=== PATIENT | female | born 1995 | race African-American/Black ===

== ENCOUNTER → 2017-08-22 | Outpatient (CLI) | payer OTHER ==
[~2017-08-22] MED LIST: FERR325T18 PO; PRENTAB7 PO
== END ==
LOC: HPND 10:35
PROVIDERS: ATTEND Family Medicine
DX: O09.33 Supervision of pregnancy with insufficient antenatal care, third trimester (principal)
CPT/HCPCS: 76816

== ENCOUNTER → 2017-08-30 | Outpatient (CLI) | payer OTHER ==
[~2017-08-30] MED LIST changes: +IBUP-232 PO; +KETOROLAC TROMETHAMINE 60 MG/2 ML (IM) VIAL IM ONE; +OXYC1TAB63 PO; +OXYTOCIN 30 UNITS-500ML PREMIX 500 ML ONE; +PERI PO
== END ==
LOC: HOBG 15:29
PROVIDERS: ATTEND Obstetrics & Gynecology Maternal & Fetal Medicine
DX: O26.893 Other specified pregnancy related conditions, third trimester (principal); O32.1XX0 Maternal care for breech presentation, not applicable or unspecified; Z3A.39 39 weeks gestation of pregnancy
CPT/HCPCS: J1885; J2590

== ENCOUNTER 2017-08-31 05:04 | Inpatient (IN) | payer OTHER ==
[~2017-08-31] VITALS: Ht 177.8 cm; Wt 84.0 kg
[2017-08-31] VITALS (16 sets, daily range): BP systolic 111–137; BP diastolic 65–77; PULSE 60–86; RESP 12–20; TEMP 97.6–99.4; O2SAT 100
[~2017-08-31 05:04] MED LIST changes: -IBUP-232 PO; -KETOROLAC TROMETHAMINE 60 MG/2 ML (IM) VIAL IM ONE; -OXYC1TAB63 PO; -OXYTOCIN 30 UNITS-500ML PREMIX 500 ML ONE; -PERI PO
[2017-08-31] MEDS ORDERED: LACTATED RINGER'S 1000 ML INJ 1,000 ML IV ONE ×2 (06:30→12:00)
--- NOTE | 2017-08-31 06:30 | HHI.HP ---
HPI Chief Complaint SROM Date Seen: Aug 31, 2017 Time Seen: 06:15 Travel History International Travel<30 Days: No Contact w/Intl Traveler<30Days: No Known Affected Area: No History of Present Illness HPI 22-year-old G1 at 39 and 5 presenting to the ED for SROM. Patient was initially scheduled for a on 09/01 due to breech presentation. Patient states that at 0200 she awoke from sleep with vaginal trickling of fluid. This trickling persisted for several hours and prompted her to come to the ED. She states the fluid was clear. Denies contractions or vaginal bleeding. Continues to feel baby move appropriately. She denies fevers, chills, nausea vomiting, dysuria. Patient is GBS negative and had an uncomplicated to this point. History Past Medical History Medical History: Denies Significant Hx Obstetric History Obstetric History 39 weeks and 5 days Uncomplicated GBS negative Past Surgical History Surgical History: No Previous Surgery Family History Family History: Negative Social History Narrative Social History Lives alone, currently attending [facility] Denies tobacco or alcohol use Admits to smoking marijuana in the past but nothing during the Allergies-Medications (Allergen,Severity, Reaction): Coded Allergies: No Known Allergies (Unverified Adverse Reaction, Unknown, 08/31/17) Home Meds Active Scripts Ferrous Sulfate (Ferrous Sulfate) 325 Mg (65 Mg Iron) Tablet, 325 MG PO BIDPC for Nutritional Supplement, #90 TAB 3 Refills Prov:Vin Singh MD 08/18/17 Pnv No.95/Ferrous Fum/Folic AC ( Vitamins Tablet) 28 Mg Iron-800 Mcg Tablet, 1 TAB PO DAILY, #30 Prov:Vin Singh MD 06/24/17 Review of Systems Except as stated in HPI: all other systems reviewed are Neg Physical Exam Narrative GENERAL: Well-nourished, well-developed patient. SKIN: Warm and dry. HEAD: Normocephalic and atraumatic. EYES: No scleral icterus. No injection or drainage. ENT: No nasal drainage noted. Mucous membranes pink. Airway patent. NECK: Supple, trachea midline. No JVD. CARDIOVASCULAR: Regular rate and rhythm without murmurs, gallops, or rubs. RESPIRATORY: Breath sounds equal bilaterally. No accessory muscle use. ABDOMEN/GI: Abdomen soft, non-tender, bowel sounds present, no rebound, no guarding Gravid to 39 weeks size GENITOURINARY: External Genitalia: intact and normal in appearance Cervix: Posterior Dilatation: 1 centimeter Effacement: 50% Station: -3 Presentation: Breech Membranes: Ruptured Uterine Contractions: No contractions to this point on the monitor FHT's: Category: 1 Baseline: 145 Reactive: Yes Variability: Moderate Decels: No persistent decelerations EXTREMITIES: No cyanosis or edema. BACK: Nontender without obvious deformity. No CVA tenderness. NEUROLOGICAL: Awake and alert. Motor and sensory grossly within normal limits. Five out of 5 muscle strength in all muscle groups. Normal speech. Caprini VTE Risk Assessment Caprini VTE Risk Assessment: No/Low Risk (score <= 1) Data Data Orders Orders Ob (2e) Additional Admit Info (08/31/17 05:41) Assessment/Plan Assessment and Plan 22-year-old G1 at 39 weeks and 5 days presenting to the OB ED with SROM. Baby is in breech presentation and was initially planned for a on 09/01. Will proceed with this morning. -GBS negative -Bedside ultrasound showing baby in breech presentation -Planning for at 0730 -Continuous FHT until then -Category 1 tracing on admission -Routine preop orders Discussed with Dr. Art Loya,Bam Summers MD R1 Aug 31, 2017 06:30
--- NOTE | 2017-08-31 06:43 | PD ---
History of Present Illness History of Present Illness HPI HPI Chief Complaint SROM Date Seen: Aug 31, 2017 Time Seen: 06:15 Travel History International Travel<30 Days: No Contact w/Intl Traveler<30Days: No Known Affected Area: No History of Present Illness HPI 22-year-old G1 at 39 and 5 presenting to the ED for SROM. Patient was initially scheduled for a on 09/01 due to breech presentation. Patient states that at 0200 she awoke from sleep with vaginal trickling of fluid. This trickling persisted for several hours and prompted her to come to the ED. She states the fluid was clear. Denies contractions or vaginal bleeding. Continues to feel baby move appropriately. She denies fevers, chills, nausea vomiting, dysuria. Patient is GBS negative and had an uncomplicated to this point. History (Limited) History Past Medical History Medical History: Denies Significant Hx Obstetric History Obstetric History 39 weeks and 5 days Uncomplicated GBS negative Past Surgical History Surgical History: No Previous Surgery Family History Family History: Negative Social History Narrative Social History Lives alone, currently attending [facility] Denies tobacco or alcohol use Admits to smoking marijuana in the past but nothing during the Allergies-Medications Allergies-Medications (Allergen,Severity, Reaction): Coded Allergies: No Known Allergies (Unverified Adverse Reaction, Unknown, 08/31/17) Home Meds Active Scripts Ferrous Sulfate (Ferrous Sulfate) 325 Mg (65 Mg Iron) Tablet, 325 MG PO BIDPC for Nutritional Supplement, #90 TAB 3 Refills Prov:Vin Singh MD 08/18/17 Pnv No.95/Ferrous Fum/Folic AC ( Vitamins Tablet) 28 Mg Iron-800 Mcg Tablet, 1 TAB PO DAILY, #30 Prov:Vin Singh MD 06/24/17 ROS Review of Systems Except as stated in HPI: all other systems reviewed are Neg Physical Exam Physical Exam Narrative GENERAL: Well-nourished, well-developed patient. SKIN: Warm and dry. HEAD: Normocephalic and atraumatic. EYES: No scleral icterus. No injection or drainage. ENT: No nasal drainage noted. Mucous membranes pink. Airway patent. NECK: Supple, trachea midline. No JVD. CARDIOVASCULAR: Regular rate and rhythm without murmurs, gallops, or rubs. RESPIRATORY: Breath sounds equal bilaterally. No accessory muscle use. ABDOMEN/GI: Abdomen soft, non-tender, bowel sounds present, no rebound, no guarding Gravid to 39 weeks size GENITOURINARY: External Genitalia: intact and normal in appearance Cervix: Posterior Dilatation: 1 centimeter Effacement: 50% Station: -3 Presentation: Breech Membranes: Ruptured Uterine Contractions: No contractions to this point on the monitor FHT's: Category: 1 Baseline: 145 Reactive: Yes Variability: Moderate Decels: No persistent decelerations EXTREMITIES: No cyanosis or edema. BACK: Nontender without obvious deformity. No CVA tenderness. NEUROLOGICAL: Awake and alert. Motor and sensory grossly within normal limits. Five out of 5 muscle strength in all muscle groups. Normal speech. Caprini VTE Risk Assessment Caprini VTE Risk Assessment Caprini VTE Risk Assessment: No/Low Risk (score <= 1) Data Data Data Orders Orders Ob (2e) Additional Admit Info (08/31/17 05:41) OB Assessment/Plan Assessment/Plan Assessment and Plan 22-year-old G1 at 39 weeks and 5 days presenting to the OB ED with SROM. Baby is in breech presentation and was initially planned for a on 09/01. Will proceed with this morning. -GBS negative -Bedside ultrasound showing baby in breech presentation -Planning for at 0730 -Continuous FHT until then -Category 1 tracing on admission -Routine preop orders Discussed with Dr. Art Loya,Bam Summers MD R1 Aug 31, 2017 06:43
[2017-08-31] MEDS: LACTATED RINGER'S 1000 ML INJ 1,000 ML IV SCH (06:55)
[2017-08-31 06:57] LABS: BACTERIA, URINE OCC /hpf; BILIRUBIN, URINE NEG (NEG); BLOOD, URINE TRACE (NEG); GLUCOSE,URINE NEG (NEG); KETONE, URINE NEG (NEG); MUCUS URINE FEW /lpf (OCC); NITRITE,URINE NEG (NEG); PH, URINE 6.5 (5.0-8.5); SQUAMOUS EPITHELIAL CELL URINE 2 /hpf (0-5); URINE COLOR YELLOW (YELLW/STRAW); URINE LEUKOCYTE ESTERASE LARGE (NEG)
[2017-08-31 06:58] LABS: AUTOMATED NEUTROPHIL # 4.5 TH/MM3 (1.8-7.7); BASOPHIL % 0.6 % (0.0-2.0); EOSINOPHIL # 0.1 TH/MM3 (0-0.4); EOSINOPHIL % 1.2 % (0.0-4.0); HEMATOCRIT 28.8 % (35.0-46.0); HEMOGLOBIN 10.2 GM/DL (11.6-15.3); LYMPH % 21.4 % (9.0-44.0); LYMPHOCYTE # 1.4 TH/MM3 (1.0-4.8); MEAN CELL VOLUME 81.7 FL (80.0-100.0); MEAN CORPUSCULAR HGB CONC 35.5 % (32.0-36.0); MEAN PLATELET VOLUME 8.6 FL (7.0-11.0); MONO % 9.7 % (0.0-8.0); MONOCYTE # 0.7 TH/MM3 (0-0.9); NEUT % 67.1 % (16.0-70.0); PLATELET COUNT 244 TH/MM3 (150-450); RED BLOOD COUNT 3.53 MIL/MM3 (4.00-5.30); RED CELL DISTRIBUTION WIDTH 14.8 % (11.6-17.2); WHITE BLOOD COUNT 6.8 TH/MM3 (4.0-11.0)
[2017-08-31] MEDS ORDERED: MORPHINE SULFATE PF 5 MG/10 ML VIAL ONE (07:18)
[2017-08-31] MEDS ORDERED: ACETAMINOPHEN 1000 MG/100 ML 100 ML IV ONE (07:19)
[2017-08-31] MEDS ORDERED: ceFAZolin 2 GM PREMIX 50 ML IV SCH (07:30)
[2017-08-31] MEDS ORDERED: CITRIC ACID-SODIUM CITRATE LIQ 30 ML UDC PO SCH (08:00)
[2017-08-31] MEDS ORDERED: OXYTOCIN 30 UNITS-500ML PREMIX 500 ML IV ONE (09:00)
[2017-08-31] MEDS ORDERED: KETOROLAC TROMETHAMINE 60 MG/2 ML (IM) VIAL IM PRN (09:00)
[2017-08-31] MEDS ORDERED: SODIUM CHLORIDE 0.9% FLUSH 10 ML FLUSH IV FLUSH PRN (09:00)
[2017-08-31] MEDS ORDERED: oxyCODONE/ACETAMINOPHEN 5 MG/325 MG TAB PO PRN ×2 (09:00)
[2017-08-31] MEDS ORDERED: SIMETHICONE 80 MG CHEWABLE TAB PO PRN (09:00)
[2017-08-31] MEDS: SODIUM CHLORIDE 0.9% FLUSH 10 ML FLUSH IV FLUSH SCH (09:00)
[2017-08-31] MEDS ORDERED: ACETAMINOPHEN 325 MG TAB PO PRN (09:00)
[2017-08-31] MEDS ORDERED: DOCUSATE SODIUM 50 MG/SENNA 8.6 MG TAB PO PRN (09:00)
[2017-08-31] MEDS ORDERED: ONDANSETRON HCL 4 MG/2 ML VIAL IV PUSH PRN (09:00)
[2017-08-31] MEDS ORDERED: OXYTOCIN 10 UNIT/ML AMP IV ONE (12:00)
[2017-08-31] MEDS ORDERED: ONDANSETRON HCL 4 MG/2 ML VIAL IV ONE (12:00)
[2017-08-31] MEDS ORDERED: DEXAMETHASONE SOD PHOS 4 MG/ML VIAL IV ONE (12:00)
[2017-08-31] MEDS ORDERED: PHENYLEPH/NS 1000 MCG/10 ML SYR IV ONE (12:00)
[2017-08-31] MEDS ORDERED: LACTATED RINGER'S 1000 ML INJ 1,000 ML IV SCH (13:51)
[2017-08-31] MEDS ORDERED: EPIDURAL-DO NOT ADMINISTER ANTICOAGULANTS PRN (15:00)
[2017-08-31] MEDS ORDERED: EPIDURAL-NALOXONE HCL 0.4 MG/ML AMP IV PUSH PRN (15:00)
[2017-08-31] MEDS ORDERED: EPIDURAL-NO SYSTEMIC NARCOTICS PRN (15:00)
[2017-08-31] MEDS ORDERED: EPIDURAL-DIPHENHYDRAMINE HCL 50 MG CAP PO PRN (15:00)
[2017-08-31] MEDS ORDERED: EPIDURAL-DIPHENHYDRAMINE HCL 50 MG/ML VIAL IV PUSH PRN (15:00)
[2017-08-31] MEDS: ceFAZolin 2 GM PREMIX 50 ML IV SCH ×2 (15:32→23:37)
[2017-08-31] MEDS: ACETAMINOPHEN 1000 MG/100 ML 100 ML IV SCH (16:13)
[2017-08-31] MEDS ORDERED: OXYTOCIN 30 UNITS-500ML PREMIX 500 ML IV PRN (19:00)
[2017-09-01 00:20] VITALS: BP 91/53; PULSE 84; RESP 14; TEMP 98
[2017-09-01] MEDS: ACETAMINOPHEN 1000 MG/100 ML 100 ML IV SCH (00:22)
[2017-09-01 04:15] VITALS: BP 91/55; PULSE 68; RESP 14; TEMP 97.9
[2017-09-01 06:12] LABS: AUTOMATED NEUTROPHIL # 6.1 TH/MM3 (1.8-7.7); BASOPHIL % 0.3 % (0.0-2.0); EOSINOPHIL # 0.1 TH/MM3 (0-0.4); EOSINOPHIL % 0.7 % (0.0-4.0); HEMOGLOBIN 7.4 GM/DL (11.6-15.3); LYMPH % 20.2 % (9.0-44.0); LYMPHOCYTE # 1.8 TH/MM3 (1.0-4.8); MEAN CELL VOLUME 80.9 FL (80.0-100.0); MEAN CORPUSCULAR HGB CONC 35.9 % (32.0-36.0); MEAN PLATELET VOLUME 8.6 FL (7.0-11.0); MONO % 10.5 % (0.0-8.0); MONOCYTE # 0.9 TH/MM3 (0-0.9); NEUT % 68.3 % (16.0-70.0); PLATELET COUNT 180 TH/MM3 (150-450); RED BLOOD COUNT 2.54 MIL/MM3 (4.00-5.30); RED CELL DISTRIBUTION WIDTH 15.2 % (11.6-17.2)
[2017-09-01 06:21] LABS: HEMATOCRIT 20.6 % (35.0-46.0)
--- NOTE | 2017-09-01 07:10 | HHI.OB ---
Subjective Post Operative Day: 1 Remarks Patient seen and examined this morning. AF overnight. BPs ranging 90s-130s/50s- 70s. Postoperative day #1. Patient states her pain is well controlled, max of 2/ 10 overnight. Denies any bleeding or drainage from her incision site. Reports minimal vaginal bleeding. Denies dysuria. No breast tenderness. She is feeding the baby via breast, does report some issues with latching at times but overall states she feels she has been doing well . Appetite good. No nausea or vomiting. No flatus or BMs yet. Ambulating well without issues, no dizziness or lightheadedness. Denies fevers, calf pain, shortness of breath, or cough. She otherwise has no other complaints or concerns this morning. (Vin Singh MD) Objective Vitals/I&O Vital Signs Date Time Temp Pulse Resp B/P (MAP) Pulse Ox O2 Delivery O2 Flow Rate FiO2 09/01/17 04:15 68 14 91/55 (67) 09/01/17 04:15 97.9 09/01/17 00:20 98.0 14 09/01/17 00:20 84 91/53 (66) 08/31/17 21:25 99.4 77 16 120/66 (84) 08/31/17 20:15 16 08/31/17 17:15 16 08/31/17 17:15 98.4 86 137/77 (97) 08/31/17 16:15 17 08/31/17 15:35 16 08/31/17 13:50 72 112/71 (85) 08/31/17 13:50 98.2 12 08/31/17 13:05 16 08/31/17 11:56 18 08/31/17 10:41 60 16 113/68 (83) 08/31/17 10:41 97.8 08/31/17 09:45 120/75 (90) 08/31/17 09:37 65 18 08/31/17 09:37 97.7 100 08/31/17 09:30 116/65 (82) 08/31/17 09:26 64 18 100 08/31/17 09:15 122/69 (86) 08/31/17 09:12 64 18 100 08/31/17 09:01 97.6 70 20 111/69 (83) 100 (Vin Singh MD) Result Diagram: 09/01/17 0459 Objective Remarks GENERAL: Well-nourished, well-developed patient. CARDIOVASCULAR: Regular rate and rhythm without murmurs, gallops, or rubs. RESPIRATORY: Breath sounds equal bilaterally. No accessory muscle use. ABDOMEN/GI: Abdomen soft, non-tender, bowel sounds present. Incision: Covered by bandage. Bandage appearing dry. Fundus: Firm, non-tender at umbilicus. GENITOURINARY: Light to moderate bleeding. EXTREMITIES: No cyanosis or edema, non-tender, without signs of DVT. Medications and IVs Current Medications Medications (Trade) Dose Ordered Sig/Gurdeep Route Start Time Stop Time Status Last Admin Lactated Ringer's 1,000 ml @ 150 mls/hr Q6H40M IV 08/31/17 07:00 08/31/17 06:55 (Bicitra Liq) 30 ml SUPERVISOR FIREARMS PO 08/31/17 08:00 09/04/17 07:59 08/31/17 07:17 Lactated Ringer's 1,000 ml @ 100 mls/hr Q10H IV 08/31/17 13:51 09/01/17 09:50 Oxytocin 500 ml @ 100 mls/hr UNSCH X1 PRN IV 08/31/17 19:00 09/01/17 18:59 (NS Flush) 2 ml BID IV FLUSH 08/31/17 09:00 (NS Flush) 2 ml UNSCH PRN IV FLUSH 08/31/17 09:00 (Mylicon Chew) 80 mg QID PRN PO 08/31/17 09:00 (Tylenol) 650 mg Q6H PRN PO 08/31/17 09:00 (Motrin) 600 mg Q6H PRN PO 08/31/17 09:00 (Toradol Inj) 60 mg Q12HR PRN IM 08/31/17 09:00 09/01/17 08:59 08/31/17 09:40 (Percocet 5-325 Mg) 1 tab Q4H PRN PO 08/31/17 09:00 (Percocet 5-325 Mg) 2 tab Q4H PRN PO 08/31/17 09:00 (Tiny-Colace) 2 tab Q12H PRN PO 08/31/17 09:00 (M-M-R Ii Inj) 0.5 ml ONCE ONCE SQ 09/01/17 16:00 09/01/17 16:01 (Boostrix Inj) 0.5 ml ONCE ONCE IM 09/01/17 16:00 09/01/17 16:01 (Zofran Inj) 4 mg Q6H PRN IV PUSH 08/31/17 09:00 Miscellaneous Information NO SYSTEMIC NARCOTICS TO BE GIVEN FO... UNSCH PRN .XX 08/31/17 15:00 09/01/17 14:59 (Narcan Inj) 0.4 mg UNSCH PRN IV PUSH 08/31/17 15:00 09/01/17 14:59 (Benadryl Inj) 25 mg Q6H PRN IV PUSH 08/31/17 15:00 09/01/17 14:59 (Benadryl) 50 mg Q6H PRN PO 08/31/17 15:00 09/01/17 14:59 Miscellaneous Information ALL NURSING DEPARTMENTS UNSCH PRN .XX 08/31/17 15:00 09/01/17 14:59 Cefazolin Sodium/ Dextrose 50 ml @ 100 mls/hr Q8H IV 08/31/17 15:30 09/01/17 07:59 08/31/17 23:37 (Vin Singh MD) Assessment/Plan Assessment and Plan Very pleasant 22 year-old now POD#1 s/p primary due to breech presentation. 1. Postoperative Care - AF, continue to monitor BPs and vitals - Postop H&H 7,4, from 10.2, repeat H/H for tomorrow - Start ferrous sulfate 325 mg bid - Will check incision after removal of bandage - Percocet and Motrin prn pain - Encouraged OOB, as tolerated - Advised pelvic rest x 6 weeks - without issues - Contraception: Discussed with patient this AM, patient still considering her options - F/u in 1 week with OB provider for incision check dw Dr. Ro (Vin Singh MD) Attending Attestation Patient seen and examined, discussed with Dr. Singh. I agree with assessment and management as documented and discussed with me. Start iron for postop anemia. Pt asymptomatic. Pt with flatus prior to my exam. Continue routine postop care. (Valencia Ro MD) Vin Singh MD Sep 01, 2017 07:10 Valencia Ro MD Sep 01, 2017 10:27
[2017-09-01 08:00] VITALS: BP 101/58; PULSE 77; RESP 16; TEMP 98.1; O2SAT 99
[2017-09-01] MEDS: FERROUS SULFATE 325 MG (65 MG ELEMENTAL IRON) TAB PO SCH ×2 (09:40→21:31)
[2017-09-01] MEDS: IBUPROFEN 600 MG TAB PO PRN ×2 (09:46→11:40)
[2017-09-01] MEDS ORDERED: ceFAZolin 2 GM PREMIX 50 ML IV ONE (10:15)
[2017-09-01] MEDS ORDERED: ceFAZolin 2 GM PREMIX 50 ML IV SCH (10:15)
[2017-09-01] MEDS: SODIUM CHLORIDE 0.9% FLUSH 10 ML FLUSH IV FLUSH SCH (10:35)
--- NOTE | 2017-09-01 13:19 | MP ---
cc: ALEXA CORDOVA MD DATE OF SURGERY: 08/31/2017. PREOPERATIVE DIAGNOSIS: Breech presentation at term with spontaneous rupture of membranes. POSTOPERATIVE DIAGNOSIS: Breech presentation at term with spontaneous rupture of membranes. OPERATIVE PROCEDURE PERFORMED: Primary low transverse section. SURGEON: Alexa Cordova MD. WINDOW REPAIRER: Marcus ANESTHESIA: Spinal. PREOPERATIVE NOTE: The patient is a 22-year-old black female 1, para 0 at 39 weeks with known breech presentation and was scheduled for tomorrow but she has spontaneous rupture of the membranes early this morning. She is not in labor. Cervix is only fingertip and thick. The baby is in a luz breech presentation confirmed by ultrasound. DESCRIPTION OF THE PROCEDURE IN DETAIL: The patient was taken to the operating room and placed in the supine position on the operating room table. After adequate spinal anesthesia was administered, she was prepped and draped for abdominal surgery. A Pfannenstiel incision was made in the lower abdomen and carried to the fascia sharply. The fascia was dissected off the rectus muscle and the rectus split in the midline. Peritoneal cavity entered sharply. The incisions were extended superiorly and inferiorly and then stretched open. Bladder blade placed lower edge of the incision. The visceral peritoneum was reflected off the lower uterine segment and placed on the bladder blade. A transverse hysterotomy was made and extended bluntly bilaterally and clear fluid noted. Luz breech was identified and extracted in the usual fashion without difficulty. Delivery was 07:58 a.m. and was a female infant weight 3240 grams, Apgars 9 and 9. There were no complications. Cord blood obtained. Placenta manually extracted. Uterus exteriorized and cleaned of all remnants of membrane. The hysterotomy was closed in a running layer of #0 chromic followed by imbricating suture of same. Hemostasis was achieved with a couple of stick ties. The uterus was elevated and blood suctioned from the cul-de-sac and the gutters. The bladder reapproximated in a running layer of 2-0 Vicryl. The uterus was once again placed on stretch. The ovaries and tubes were noted to be normal and then the uterus replaced in the peritoneal cavity. The parietal peritoneum was closed in a running layer of 2-0 Vicryl. Muscle reapproximated with stick ties of chromic and Vicryl. The fascia closed in a running layer of #0 Vicryl. The subcutaneous tissues were reapproximated with 3-0 plain catgut suture in a running fashion. Skin closed with 3-0 Monocryl subcuticular stitch. Pressure dressing applied. The estimated blood loss was 500 cc. There were no complications. Sponge, needle and instrument counts were correct x2 and the patient went to recovery in stable condition. MD SHERIN Cortez/JACY /8:52 AM /12:59 PM
[2017-09-01] MEDS ORDERED: DIPHTH/TETANUS/ACEL PERTUSSIS (BOOSTER) 0.5 ML VIAL/PFS IM ONE (16:00)
[2017-09-01] MEDS ORDERED: MEASLES, MUMPS, RUBELLA VACCINE 0.5 ML VIAL SQ ONE (16:00)
[2017-09-01 20:15] VITALS: BP 115/70; PULSE 81; RESP 18; TEMP 98; O2SAT 97
[2017-09-02] MEDS: IBUPROFEN 600 MG TAB PO PRN (03:20)
[2017-09-02] MEDS: LACTATED RINGER'S 1000 ML INJ 1,000 ML IV SCH ×2 (05:40→13:18)
[2017-09-02 06:21] LABS: AUTOMATED NEUTROPHIL # 6.9 TH/MM3 (1.8-7.7); BASOPHIL % 0.4 % (0.0-2.0); EOSINOPHIL # 0.2 TH/MM3 (0-0.4); HEMATOCRIT 21.8 % (35.0-46.0); HEMOGLOBIN 7.6 GM/DL (11.6-15.3); LYMPHOCYTE # 1.3 TH/MM3 (1.0-4.8); MEAN CELL VOLUME 81.4 FL (80.0-100.0); MEAN CORPUSCULAR HEMOGLOBIN 28.4 PG (27.0-34.0); MEAN CORPUSCULAR HGB CONC 34.9 % (32.0-36.0); MEAN PLATELET VOLUME 7.8 FL (7.0-11.0); MONO % 8.5 % (0.0-8.0); MONOCYTE # 0.8 TH/MM3 (0-0.9); NEUT % 75.1 % (16.0-70.0); PLATELET COUNT 199 TH/MM3 (150-450); RED BLOOD COUNT 2.68 MIL/MM3 (4.00-5.30); RED CELL DISTRIBUTION WIDTH 15.4 % (11.6-17.2); WHITE BLOOD COUNT 9.2 TH/MM3 (4.0-11.0)
[2017-09-02] MEDS: SODIUM CHLORIDE 0.9% FLUSH 10 ML FLUSH IV FLUSH SCH (07:05)
[2017-09-02 08:00] VITALS: BP 106/67; PULSE 83; RESP 18; TEMP 98.6; O2SAT 98
[2017-09-02] MEDS ORDERED: IBUP-232 PO (08:02)
[2017-09-02] MEDS ORDERED: PERI PO (08:02)
[2017-09-02] MEDS ORDERED: OXYC1TAB63 PO (08:02)
--- NOTE | 2017-09-02 08:11 | HHI.OB ---
Subjective Post Operative Day: 2 Remarks Patient seen and examined this morning. AFVSS overnight. Postoperative day #2. Patient states overnight her pain was carole. 6-7/10, much improved after percocet and motrin. She denies any bleeding or drainage from her incision site. Reports minimal vaginal bleeding. Denies dysuria. No breast tenderness. She is feeding baby via breast without reported issues. Appetite good. No nausea or vomiting. Endorses flatus. No BMs. Ambulating well without issues, no dizziness or lightheadedness. Denies fevers, calf pain, shortness of breath, or cough. She otherwise has no other complaints or concerns. Objective Vitals/I&O Vital Signs Date Time Temp Pulse Resp B/P (MAP) Pulse Ox O2 Delivery O2 Flow Rate FiO2 09/01/17 20:15 98.0 81 18 115/70 (85) 97 Result Diagram: 09/02/17 0604 Objective Remarks GENERAL: Well-nourished, well-developed patient. CARDIOVASCULAR: Regular rate and rhythm without murmurs, gallops, or rubs. RESPIRATORY: Breath sounds equal bilaterally. No accessory muscle use. ABDOMEN/GI: Abdomen soft, non-tender, bowel sounds present. Incision: Clean, dry, and intact Fundus: Firm, non-tender at umbilicus. GENITOURINARY: Light to moderate bleeding. EXTREMITIES: No cyanosis or edema, non-tender, without signs of DVT. Medications and IVs Current Medications Medications (Trade) Dose Ordered Sig/Gurdeep Route Start Time Stop Time Status Last Admin Lactated Ringer's 1,000 ml @ 150 mls/hr Q6H40M IV 08/31/17 07:00 08/31/17 06:55 (Bicitra Liq) 30 ml COIL WRAPPER PO 08/31/17 08:00 09/04/17 07:59 08/31/17 07:17 (NS Flush) 2 ml BID IV FLUSH 08/31/17 09:00 09/01/17 10:35 (NS Flush) 2 ml UNSCH PRN IV FLUSH 08/31/17 09:00 (Mylicon Chew) 80 mg QID PRN PO 08/31/17 09:00 09/01/17 13:37 (Tylenol) 650 mg Q6H PRN PO 08/31/17 09:00 (Motrin) 600 mg Q6H PRN PO 08/31/17 09:00 09/02/17 03:20 (Percocet 5-325 Mg) 1 tab Q4H PRN PO 08/31/17 09:00 09/02/17 03:20 (Percocet 5-325 Mg) 2 tab Q4H PRN PO 08/31/17 09:00 (Tiny-Colace) 2 tab Q12H PRN PO 08/31/17 09:00 09/01/17 13:37 (Zofran Inj) 4 mg Q6H PRN IV PUSH 08/31/17 09:00 (Ferrous Sulfate) 325 mg BID PO 09/01/17 09:00 09/01/17 21:31 Assessment/Plan Assessment and Plan Very pleasant 22-year-old now POD#2 s/p primary due to breech presentation. 1. Postoperative Care - AFVSS - Hgb 10.2 -> 7.4 -> 7.6 - Continue ferrous sulfate 325 mg bid - Incision c/d/i - Percocet and Motrin prn pain - Encouraged OOB, as tolerated - Advised pelvic rest x 6 weeks - without issues - Contraception: Discussed with patient this AM, patient still considering her options - Stable for discharge home today - F/u in 1 week with myself in clinic for incision check Discharge Planning Stable for discharge home today Vin Singh MD Sep 02, 2017 08:11
--- NOTE | 2017-09-02 08:16 | HHI.DCPOC ---
Discharge Care Plan Diagnosis: (1) care following delivery Report Symptoms to Your Doctor -Temperature above 100.5 degrees -Redness, of incision or excessive or foul smelling drainage -Unusual pain or calf pain -Increased vaginal bleeding -Painful or difficulty urinating -Feelings of extreme sadness or anxiety after 2 weeks Goals to Promote Your Health * To maintain your health at the optimal level, follow up with your PCP within one week after hospital discharge for an incision check. Directions to Meet Your Goals Take your medications as prescribed Follow your dietary instruction Follow activity as directed Ensure plenty of rest for recovery Drink fluids for hydration Keep your appointments as scheduled Take your immunizations and boosters as scheduled If your symptoms worsen call your PCP, if no PCP go to Urgent Care Center or Emergency Room Smoking is Dangerous to Your Health. Avoid second hand smoke Call the 24-hour crisis hotline for domestic abuse at Vin Singh MD Sep 02, 2017 08:16
[2017-09-02] MEDS: FERROUS SULFATE 325 MG (65 MG ELEMENTAL IRON) TAB PO SCH (10:15)
== END 2017-09-02 13:40 | disposition home or self-care (01) | DRG 766 ==
LOC: HOBED 05:04 → H2EB 05:42 → H1EA 08:28
PROVIDERS: ADMIT Obstetrics & Gynecology Maternal & Fetal Medicine; ATTEND Obstetrics & Gynecology Maternal & Fetal Medicine
PROC: 10D00Z1 Extraction of Products of Conception, Low, Open Approach (ICD-10-PCS; principal; 2017-08-31)
DX: O32.1XX0 Maternal care for breech presentation, not applicable or unspecified (principal); D64.9 Anemia, unspecified; O90.81 Anemia of the puerperium; Z37.0 Single live birth; Z3A.39 39 weeks gestation of pregnancy
CPT/HCPCS: 59025; 76815; 80307; 81001; 84112; 85025; 85461; 86850; 86900; 86901; 90384; 90715; J0131; J0690; J1100; J1885; J2274; J2370; J2405; J2590; J2790; J3010; J7120